=== PATIENT | female | born 1980 ===

== ENCOUNTER 2017-07-05 16:33 | Emergency (ER) | payer OTHER ==
[2017-07-05 16:58] VITALS: O2SAT 99
--- NOTE | 2017-07-05 18:04 | ED PDOC ---
HPI: Abdomen Chief Complaint (Provider): pelvic pain History Per: Patient History/Exam Limitations: no limitations Onset/Duration Of Symptoms: Hrs Outside of [place] travel?: No Current Symptoms Are (Timing): Still Present Severity: Severe Pain Scale Rating Of: 9 Location Of Pain/Discomfort: Suprapubic Quality Of Discomfort: Cramping Associated Symptoms: denies: Fever, Chills, Nausea, Vomiting, Diarrhea, Constipation, Urinary Symptoms Exacerbating Factors: None Alleviating Factors: None Additional History Per: Patient <Daniella Hill - Last Filed: 07/05/17 19:15> <Praveen Casarez III - Last Filed: 07/06/17 09:55> Time Seen by Provider: 07/05/17 17:07 Chief Complaint (Nursing): Female Genitourinary Additional Complaint(s): 37 yr old F presents to ED with complaint of pelvic pain which started today. Pain is 9/10, crampy, mildly alleviated by one dose of tylenol this morning. LMP 04/16/17. Denies vaginal bleeding today, nausea, vomiting, fevers, chills, dysuria. Patient reports she had a positive home test on 06/21/17, she was evaluated at [facility] for vaginal spotting from 06/30/17-07/04. Discharge papers reviewed: serum Beta Hcg was 7283, US showed intrauterine gestation of approximately 6 weeks and 6 days, dx Threatened and UTI, was discharged with Cephalexin 500mg PO TID x 10days, labs: ABO+. Patient has an appt at [facility] for 08/03/17. PMD: none LMP: 04/16/17 ObHx: PMHx: none SurgHx: x 2, cholecystectomy Medications: Cephalexin 500mg PO TID x 10days (on day 2) Allergies: NKDA (Daniella Hill) Supervising Attending Note <Daniella Hill - Last Filed: 07/05/17 19:15> - Attestation: I have personally seen and examined this patient.: Yes I have fully participated in the care of the patient.: Yes I have reviewed all pertinent clinical information: Yes <Praveen Casarez III - Last Filed: 07/06/17 09:55> - Notes: Notes:: 7p endorse dr sikand pending US report (Praveen Casarez III) Past Medical History - Medical History PMH: HTN - Surgical History Surgical History: Cholecystectomy, (x2) - Family History Family History: States: No Known Family Hx - Living Arrangements Living Arrangements: With Family - Social History Current smoker - smoking cessation education provided: No Ex-Smoker (has not smoked in the last 12 months): No Alcohol: None Drugs: Denies <Daniella Hill - Last Filed: 07/05/17 19:15> <Praveen Casarez III - Last Filed: 07/06/17 09:55> Vital Signs: Last Vital Signs Temp 98.3 F 07/05/17 20:45 Pulse 84 07/05/17 20:45 Resp 17 07/05/17 20:45 BP 119/76 07/05/17 20:45 Pulse Ox 99 07/06/17 06:15 - Allergies Allergies/Adverse Reactions: Allergies Allergy/AdvReac Type Severity Reaction Status Date / Time No Known Allergies Allergy Verified 07/05/17 17:43 Review of Systems Constitutional: Negative for: Fever, Chills Eyes: Negative for: Pain ENT: Negative for: Nose Discharge, Throat Pain Cardiovascular: Negative for: Chest Pain, Palpitations Gastrointestinal: Positive for: Abdominal Pain (suprapubic). Negative for: Nausea, Vomiting, Diarrhea, Constipation Genitourinary Female: Negative for: Dysuria, Frequency, Vaginal Discharge, Vaginal Bleeding Musculoskeletal: Negative for: Neck Pain, Shoulder Pain Skin: Negative for: Rash, Lesions Neurological: Negative for: Weakness, Numbness, Headache, Dizziness <Daniella Hill - Last Filed: 07/05/17 19:15> Physical Exam - Physical Exam Appears: Positive for: No Acute Distress Head Exam: Positive for: ATRAUMATIC, NORMOCEPHALIC Skin: Positive for: Normal Color, Warm, Dry Eye Exam: Positive for: EOMI, PERRL ENT: Positive for: Normal ENT Inspection Neck: Positive for: Normal Cardiovascular/Chest: Positive for: Regular Rate, Rhythm. Negative for: Gallop , Murmur Respiratory: Positive for: Normal Breath Sounds. Negative for: Rales, Rhonchi Pulses-Carotid (L): 2+ Pulses-Carotid (R): 2+ Pulses-Radial (L): 2+ Pulses-Radial (R): 2+ Gastrointestinal/Abdominal: Positive for: Bowel Sounds (normal), Soft, Tenderness (suprapubic). Negative for: Distended, Guarding, Rebound Back: Negative for: L CVA Tenderness, R CVA Tenderness Extremity: Positive for: Normal ROM. Negative for: Tenderness, Pedal Edema Lymphatic: Negative for: Adenopathy Neurologic/Psych: Positive for: Alert, embossograph operator II-XII (grossly intact), Oriented, Mood/Affect (normal/full range), Gait (normal). Negative for: Motor/Sensory Deficits <Daniella Hill - Last Filed: 07/05/17 19:15> - Laboratory Results Result Diagrams: 07/05/17 18:00 07/05/17 18:00 - ECG O2 Sat by Pulse Oximetry: 99 <Daniella Hill - Last Filed: 07/05/17 19:15> - Laboratory Results Result Diagrams: 07/05/17 18:00 07/05/17 18:00 <Praveen Casarez III - Last Filed: 07/06/17 09:55> - Progress ED Course And Treament: -serum BetaHc -CBC w/diff: WBC 11.4, rest within normal limits -BMP: normal -OB transvaginal US pending -tylenol 650mg PO once -patient stable, will transfer care to Dr. Hussein for followup of US results ( Daniella Hill) Disposition - Patient ED Disposition Is Patient to be Admitted: No Counseled Patient/Family Regarding: Diagnosis, Need For Followup - Disposition Disposition: Transfer of Care Disposition Time: 19:16 <Daniella Hill - Last Filed: 07/05/17 19:15> <Praveen Casarez III - Last Filed: 07/06/17 09:55> - Clinical Impression Clinical Impression: Threatened in first trimester - Disposition [facility]errals: [facility] [Outside] Condition: STABLE Instructions: Threatened Miscarriage Forms: [facility] (Marshallese) Print Language: TAJIK
[2017-07-05 18:19] LABS: BASO % 0.4 % (0.0-2.0); EOS # 0.2 K/uL (0.0-0.7); EOS % 1.3 % (0.0-4.0); HEMOGLOBIN 10.8 g/dL (12.0-16.0); LYMPH # 1.9 K/uL (1.0-4.3); LYMPH % 17.1 % (20.0-40.0); MEAN CORPUSCULAR HEMOGLOBIN 28.4 pg (27.0-31.0); MEAN CORPUSCULAR HGB CONC 33.5 g/dL (33.0-37.0); MEAN PLATELET VOLUME 8.6 fl (7.2-11.7); MONO # 0.7 K/uL (0.0-0.8); MONO % 6.6 % (0.0-10.0); NEUT # 8.5 K/uL (1.8-7.0); NEUT % 74.6 % (50.0-75.0); RBC 3.79 Mil/uL (3.80-5.20); RED CELL DISTRIBUTION WIDTH 13.3 % (11.5-14.5); WHITE BLOOD COUNT 11.4 K/uL (4.8-10.8)
[2017-07-05 18:25] LABS: BLOOD UREA NITROGEN 15 mg/dl (7-17); CALCIUM 8.8 mg/dL (8.4-10.2); GFR AFRICAN-AMERICAN > 60; GFR NON-AFRICAN AMERICAN > 60
--- NOTE | 2017-07-05 19:58 | ED PDOC ---
"- Laboratory Results Result Diagrams: 07/05/17 18:00 07/05/17 18:00 - ECG O2 Sat by Pulse Oximetry: 99 (RA) Pulse Ox Interpretation: Normal Medical Decision Making Medical Decision Making: Time: 19:00 Patient signed out to me by Dr. Casarez pending ultrasound and re-evaluation. Patient is stable for discharge for home. Patient was informed of results indictive AB versus threatened AB to follow-up at [facility]. Labs noted to indicate patient possibly has diabetes given elevated blood sugar. Patients PMD questioned the elevated blood glucose levels yesterday with no history of diabetes. She has been advised to follow-up at [facility] of re-diabetic state and was given dietary advice regarding concentrated sugars and sweets. Ultrasound Report Results... FINDINGS: Gestation: Single intrauterine with fetus corresponding to gestational age of 6 weeks and 3 days. The gestational sac is noted in the lower uterine segment. The cervix is closed and measures up to 3.6 cm. Fluid is noted in the lower uterine segment. [place]-rump length is 0.6 cm. No heart rate is identified. Uterus/cervix: Uterus measures 8.6 x 6.5 x 5.9 cm. Anteverted uterus. Ovaries: Right ovary measures 2.9 x 1.7 x 1.9 cm. left ovary measures 3.9 x 1.9 x 2.6 cm. 1.3 cm cystic structure noted in the left ovary. Free fluid: No free fluid. IMPRESSION: Single intrauterine with fetus corresponding to gestational age of 6 weeks and 3 days. The gestational sac is noted in the lower uterine segment. The No heart rate is identified.No intrauterine is identified. Differential diagnosis includes first trimester failure versus very early intrauterine . Advise serial beta HCG levels and follow up pelvic obstetrical ultrasound to assess for viability RESHMA MCCOLLUM | Preliminary Radiology Report ACCESS SPEC (QA) DISCREPANCY? If there is a discrepancy between the preliminary and final interpretation, please notify [facility] via [email or web address]. If you do not have access to our QA portal, call our QA team at [phone] CONFIDENTIALITY STATEMENT This report is intended only for the use of the referring physician, and only in accordance with law, If you received this in error, call [phone] Page 2 of 2 [The findings are diagnostic of failure based on the [facility] Multispecialty Consensus Conference on Early First Trimester Diagnosis of Miscarriage and Exclusion of a Viable Intrauterine - November 2011.] [The findings are suspicious for but not diagnostic of failure, based on the [facility] Multispecialty Consensus Conference on Early First Trimester Diagnosis of Miscarriage and Exclusion of a Viable Intrauterine - November 2011.] FINDINGS DIAGNOSTIC OF FAILURE: CRL of 7mm or greater and no heartbeat MSD of 25 mm or greater and no heartbeat Absence of embryo with heartbeat two or more weeks after a scan that showed a gestational sac without a yolk sac. Absence of embryo with heartbeat 11 days or more after a scan that showed a gestational sac with a yolk sac. FINDINGS SUSPICIOUS FOR, BUT NOT DIAGNOSTIC OF FAILURE: CRL of less than 7mm and no heartbeat MSD of 16-24 mm and no embryo Absence of embryo with heartbeat 7-13 days after a scan that showed a gestational sac without a yolk sac. Absence of embryo with heartbeat 7-10 days after a scan that showed a gestational sac with a yolk sac. Absence of embryo 6 or more weeks after LMP. Empty amnion (amnion seen adjacent to yolk sac, with no visible embryo). Enlarged yolk sac (7mm or greater) Small gestational sac in relation to the size of the embryo (5mm or less difference between MSD and CRL). Scribe Attestation: Documented by Ashlee Teresa acting as a scribe for Rodolfo Hussein MD. Scribfredrick Attestation: All medical record entries made by the Scribe were at my direction and personally dictated by me. I have reviewed the chart and agree that the record accurately reflects my personal performance of the history, physical exam, medical decision making, and the department course for this patient. I have also personally directed, reviewed, and agree with the discharge instructions and disposition. Disposition - Clinical Impression Clinical Impression: Threatened in first trimester - POA Present On Arrival: None - Disposition Referrals: [facility] [Outside] Disposition: Routine/Home Disposition Time: 20:00 Condition: STABLE Instructions: Threatened Miscarriage Forms: [facility] (Armenian) Print Language: SWISS"
[2017-07-06 00:12] VITALS: BP 119/76; PULSE 84; RESP 17; TEMP 98.3
--- NOTE | 2017-07-06 08:58 | US ---
PROCEDURE: OB Pelvic Ultrasound HISTORY: severe pelvic pain LMP: 04/16/2017 serum beta HCG 3664.7 Reportedly recently released from [facility] on 07/04 with diagnosis of threatened COMPARISON: None available. TECHNIQUE: Grayscale, color Doppler and spectral evaluation the pelvis performed transvaginally FINDINGS: UTERUS: Gestational sac: Lower uterine segment/cervical gestational sac measuring 1.0 cm, out of range. Yolk sac: Not visualized pole: [place]-rump length measures 0.6 cm compatible with estimated gestational age of 6 weeks, 3 days Heart rate: Not identified. Measures 8.7 x 6.6 x 5.9 cm. Normal in size and appearance. Endometrial canal contains echogenic material. CERVIX: Measures 3.7 cm. Long and closed. RIGHT OVARY: Measures 2.9 x 1.7 x 2.0 cm. No mass lesion. Normal flow. LEFT OVARY: Measures 3.1 x 2.0 x 2.7 cm. Corpus luteum measuring 1.3 x 0.7 x 1.0 cm. Normal flow. FREE FLUID: None. OTHER FINDINGS: None. IMPRESSION: Lower uterine segment/ cervical gestational sac with fetus corresponding to average ultrasound age of 6 weeks, 3 days, discordant when compared with estimated gestational age by LMP. Findings are highly suspicious for inevitable/incomplete miscarriage, and less likely represent cervical ectopic . Comparison with prior imaging is recommended. Close clinical follow-up with serial pelvic sonography and serum beta HCG levels is recommended.
== END 2017-07-05 20:51 | disposition home or self-care (01) ==
LOC: H.ER 16:33
DX: O03.9 Complete or unspecified spontaneous abortion without complication (principal); O16.1 Unspecified maternal hypertension, first trimester; Z3A.01 Less than 8 weeks gestation of pregnancy; Z90.49 Acquired absence of other specified parts of digestive tract

== ENCOUNTER 2017-07-07 11:18 | Emergency (ER) | payer OTHER ==
[2017-07-07 11:33] VITALS: O2SAT 99
[2017-07-07 11:34] VITALS: BMI 29.4
--- NOTE | 2017-07-07 12:12 | ED PDOC ---
HPI: General Adult Time Seen by Provider: 07/07/17 11:55 Chief Complaint (Nursing): Female Genitourinary Chief Complaint (Provider): vaginal bleeding History Per: Patient, Carton Packaging Machine Operator History/Exam Limitations: language barrier (maori speaking) Onset/Duration Of Symptoms: Days (2) Have you had recent travel within the past 21 days to any of the following countries: [place], [place], [place] or [place]?: No Current Symptoms Are (Timing): Better Severity: None Recently: Seen In ED (2 days ago) Additional Complaint(s): pt p/w + 2 days onset of vaginal bleeding, initially bleeding was severe, changed at least 4 pads/day; pt also noted suprapubic cramps; pt was evaluated in the ED at that time and was directed to come back to ED today?? for re-eval; pt states her bleeding is much improved today; pt only changed 1 pad today and she changed 2-3 pads yesterday but noted some passage of tissue; pt states no fever/chills/sweats, no cp/sob/palpitations, no abd pain, no n/v, no numbness/ tingling, no urinary/bowel changes, no lightheadedness/dizziness/LOC, no goode, no neck pain, no fall/trauma/sick contact, no travel; pt is here for further eval; pt's without other complaints. PCP: NONE PMHx: NONE; choley, 2 c-sections LMP: 3/5 Past Medical History Reviewed: Historical Data, Nursing Documentation, Vital Signs Vital Signs: Last Vital Signs Temp 98.4 F 07/07/17 11:33 Pulse 100 H 07/07/17 11:33 Resp 16 07/07/17 11:33 BP 151/89 H 07/07/17 11:33 Pulse Ox 99 07/07/17 12:21 - Medical History PMH: HTN - Surgical History Surgical History: Cholecystectomy, (x2) - Family History Family History: States: No Known Family Hx - Living Arrangements Living Arrangements: With Family - Social History Current smoker - smoking cessation education provided: No Ex-Smoker (has not smoked in the last 12 months): No Alcohol: None Drugs: Denies - Allergies Allergies/Adverse Reactions: Allergies Allergy/AdvReac Type Severity Reaction Status Date / Time No Known Allergies Allergy Verified 07/07/17 12:02 Review of Systems ROS Statement: Except As Marked, All Systems Reviewed And Found Negative Constitutional: Negative for: Fever, Chills, Sweats, Weakness Eyes: Negative for: Pain ENT: Negative for: Ear Pain Cardiovascular: Negative for: Chest Pain, Palpitations Respiratory: Negative for: Cough, SOB with Exertion Gastrointestinal: Positive for: Abdominal Pain. Negative for: Nausea, Vomiting Genitourinary Female: Positive for: Vaginal Bleeding. Negative for: Dysuria, Frequency, Vaginal Discharge Musculoskeletal: Negative for: Neck Pain, Back Pain Skin: Negative for: Rash Neurological: Negative for: Weakness, Headache Physical Exam - Reviewed Nursing Documentation Reviewed: Yes Vital Signs Reviewed: Yes (elevated BP) - Physical Exam Comments: General: alert/awake, GCS = 15, oriented x 3, resting in bed, mildly uncomfortable, cooperative, interactive; NAD Head: NC/AT EYE: PERRLA, EOMI, sclera anicteric, no nystagmus, no photophobia; visual field intact b/l Facial: WNL Oral: uvula/tongue are midline, no exudate/lesions, no drooling/stridor, no dysphonia; intact dentitions NECK: intact ROM, no midline tenderness, no nuchal rigidity, no meningeal signs ; no step off Chest: CTA b/l, no w/r/r; no tachypenia, no accessory muscle use noted Cardiac: +S1, +S2, no m/r/r, no tachycardia Abdominal: +BS, soft/nd/nt, well nourished patient; no masses/rebound/guarding/ rigidity; no holder's sign, no mcburney's point tenderness : deferred Extremities: intact ROM, strength 5/5 grossly intact in all limbs, neurovasc intact b/l; + ambulatory; reflex +2/2 BACK: no step off, no midline tenderness, NO crepitus, no gross deformities noted; Intact ROM SKIN: cap refill < 1 sec, no ulcerations, no petechiae, no rashes; no gross pallor NEURO: CNII-XII WNL, no facial asymmetries, no slurr speech, oriented x 3 NIH stroke scale ~ 0 Psych: normal insight, normal affect; follows command with ease - Laboratory Results Interpretation Of Abnormal: decr B-hcg - ECG O2 Sat by Pulse Oximetry: 99 Pulse Ox Interpretation: Normal - Radiology X-Ray: Viewed By Me, Read By Radiologist - Progress ED Course And Treament: HISTORY: vaginal bleeding; preg COMPARISON: None available. TECHNIQUE: Transabdominal and transvaginal pelvic ultrasound was performed. FINDINGS: UTERUS: Measures 9.4 x 7.8 x 6.6 cm. Anteverted, normal in size and appearance. No fibroid or other mass lesion seen. ENDOMETRIUM: Measures 8.0 mm in diameter. The central endometrial echo complex is normal in appearance. No evidence of intrauterine gestation. CERVIX: There is a 1.7 x 0.9 x 1.9 cm nabothian cyst. RIGHT OVARY: Measures 1.7 x 2.0 x 1.6 cm. No solid mass. Normal flow. LEFT OVARY: Measures 3.5 x 1.8 x 2.2 cm. No solid mass. Normal flow. There is a 1.8 x 1.4 x 1.6 cm isoechoic round lesion with central anechoic area and mild peripheral increased vascularity in the left adnexa. FREE FLUID: No significant free fluid noted. OTHER FINDINGS: None. IMPRESSION: 1. No evidence of intrauterine gestation. 2. 1.8 x 1.4 x 1.6 cm round lesion in the left adnexa likely represent a complicated ovarian cyst however ectopic cannot be entirely excluded. Clinical follow-up, correlation with serial beta HCG levels and follow-up imaging is recommended to confirm/exclude the same. discussed with patient at length regarding pt's U/S findings, i explained to her that the likely finding of the abnl ovarian finding could represent a cyst, but the possibility of heterogeneous hetrotopic ectopic remains and that she will need to either return to ED or go to the women's health clinic in 2-3 days for repeat HCG or if worse pelvic pain, pt is instructed to return to ED immediately. pt expressed understanding 4:30pm - pt remained comfortable, NAD; pt is made aware of her medical results pt is directed to either go to women's health clinic on sunday or return to ED for repeate HCG pt is encouraged no sex/heavy lifting, no prolonged standing/weight bearing pt is encouraged hydration pt is encouraged outpt f/u pt will be discharged home Re-evaluation Time: 16:30 Condition: Improved Medical Decision Making Medical Decision Making: Impression: vaginal bleeding/threaten ab i have consider all the differential diagnosis regarding pt's chief medical complaints/clinical findings, including but are not limited to: vaginal bleeding /threaten ab; elevated bp A/P: vaginal bleeding/threaten ab - beta-quant - u/s - ua - supportive care - observe/reevaluation Disposition - Clinical Impression Clinical Impression: Ovarian cyst, Complete miscarriage, Vaginal bleeding, Elevated blood pressure reading - Patient ED Disposition Is Patient to be Admitted: No Counseled Patient/Family Regarding: Studies Performed, Diagnosis, Need For Followup, Rx Given - Disposition Referrals: PCP,NO [Non-Staff] - [facility] [place] [Outside] [facility] [Outside] [facility] [Outside] [facility] [Outside] Disposition: Routine/Home Disposition Time: 16:26 Condition: STABLE Additional Instructions: Make sure to see your doctor in 1-2 days YOU need to go to the women's clinic on Sunday and have blood tests (b-HCG) drawn for re-check or come to the ED and tell them you need to have the blood tests drawn DRINK PLENTY OF FLUIDS NO heavy lifting NO SEX bed rest is encouraged take your medications as prescribed RETURN TO ED IF worse pain, cant breath, persistent vomiting, high fever >101- 102 for hours, altered behavior, slurr speech, facial changes, focal weakness ( arm/leg or both), unable to urinate, heavy/persistent bleeding, passing out, chest pain, or other medical emergencies Instructions: Ovarian Cysts, Miscarriage, High Blood Pressure (DC) Forms: [facility] (Rwandan) Print Language: KYRGYZ
[2017-07-07 13:05] LABS: SQUAMOUS EPITHIAL 4 /hpf (0-5); URINE BACTERIA MANY (<OCC); URINE BILIRUBIN NEGATIVE (NEGATIVE); URINE BLOOD LARGE (NEGATIVE); URINE CLARITY CLOUDY (Clear); URINE COLOR YELLOW (YELLOW); URINE GLUCOSE (UA) >=500 mg/dL (Normal); URINE LEUKOCYTE ESTERASE MOD Leu/uL (Negative); URINE PROTEIN >=500 mg/dL (NEGATIVE); URINE UROBILINOGEN 0.2-1.0 mg/dL (0.2-1.0); WBC CLUMPS RARE /hpf
--- NOTE | 2017-07-07 15:28 | US ---
HISTORY: vaginal bleeding; preg COMPARISON: None available. TECHNIQUE: Transabdominal and transvaginal pelvic ultrasound was performed. FINDINGS: UTERUS: Measures 9.4 x 7.8 x 6.6 cm. Anteverted, normal in size and appearance. No fibroid or other mass lesion seen. ENDOMETRIUM: Measures 8.0 mm in diameter. The central endometrial echo complex is normal in appearance. No evidence of intrauterine gestation. CERVIX: There is a 1.7 x 0.9 x 1.9 cm nabothian cyst. RIGHT OVARY: Measures 1.7 x 2.0 x 1.6 cm. No solid mass. Normal flow. LEFT OVARY: Measures 3.5 x 1.8 x 2.2 cm. No solid mass. Normal flow. There is a 1.8 x 1.4 x 1.6 cm isoechoic round lesion with central anechoic area and mild peripheral increased vascularity in the left adnexa. FREE FLUID: No significant free fluid noted. OTHER FINDINGS: None. IMPRESSION: 1. No evidence of intrauterine gestation. 2. 1.8 x 1.4 x 1.6 cm round lesion in the left adnexa likely represent a complicated ovarian cyst however ectopic cannot be entirely excluded. Clinical follow-up, correlation with serial beta HCG levels and follow-up imaging is recommended to confirm/exclude the same.
[2017-07-07 16:31] VITALS: BP 146/82; PULSE 86; RESP 15; TEMP 98
== END 2017-07-07 16:38 | disposition home or self-care (01) ==
LOC: H.ER 11:18
DX: O03.9 Complete or unspecified spontaneous abortion without complication (principal); N83.209 Unspecified ovarian cyst, unspecified side; I10 Essential (primary) hypertension; Z87.891 Personal history of nicotine dependence

== ENCOUNTER 2017-09-18 13:27 | Emergency (ER) | payer SELFPAY ==
[2017-09-18 13:52] VITALS: BMI 28.1
[2017-09-18 13:53] VITALS: O2SAT 99
[2017-09-18] MEDS ORDERED: Sodium Chloride 0.9% 1,000 ML IV STA (14:39)
[2017-09-18] MEDS ORDERED: Iohexol 240 (50 ml) PO ONE (14:40)
--- NOTE | 2017-09-18 14:48 | ED PDOC ---
HPI: Abdomen Time Seen by Provider: 09/18/17 14:20 Chief Complaint (Nursing): GI Problem Chief Complaint (Provider): Abdominal Pain History Per: Patient History/Exam Limitations: no limitations Location Of Pain/Discomfort: Diffuse Quality Of Discomfort: "Pain" Associated Symptoms: Nausea, Vomiting. denies: Fever, Diarrhea, Urinary Symptoms Additional Complaint(s): 37 year old female with a past medical history of diabetes presents to the ED for an evaluation of nausea, vomiting and abdominal pain onset for 1 week. Reports of greenish non-bloody vomiting. Denies fever, shortness of breath, chest pain, cough, diarrhea, constipation, urinary symptoms or incontinence. PMD: No Family Provider Past Medical History Reviewed: Historical Data, Nursing Documentation, Vital Signs Vital Signs: Last Vital Signs Temp 98.7 F 09/18/17 13:52 Pulse 91 H 09/18/17 13:52 Resp 20 09/18/17 13:52 BP 131/80 09/18/17 13:52 Pulse Ox 99 09/18/17 14:58 - Medical History PMH: Diabetes, HTN - Surgical History Surgical History: Cholecystectomy, (x2) - Family History Family History: States: Unknown Family Hx - Social History Current smoker - smoking cessation education provided: No Alcohol: None Drugs: Denies - Allergies Allergies/Adverse Reactions: Allergies Allergy/AdvReac Type Severity Reaction Status Date / Time No Known Allergies Allergy Verified 07/07/17 12:02 Review of Systems ROS Statement: Except As Marked, All Systems Reviewed And Found Negative Constitutional: Negative for: Fever Cardiovascular: Negative for: Chest Pain Respiratory: Negative for: Shortness of Breath Gastrointestinal: Positive for: Nausea, Vomiting, Abdominal Pain. Negative for : Diarrhea Genitourinary Female: Negative for: Dysuria, Frequency, Incontinence Psych: Negative for: Suicidal ideation (homicidal ideation ) Physical Exam - Reviewed Nursing Documentation Reviewed: Yes Vital Signs Reviewed: Yes - Physical Exam Appears: Positive for: Non-toxic, No Acute Distress Head Exam: Positive for: ATRAUMATIC, NORMAL INSPECTION, NORMOCEPHALIC Skin: Positive for: Normal Color, Warm, Dry Eye Exam: Positive for: EOMI, Normal appearance, PERRL ENT: Positive for: Normal ENT Inspection Neck: Positive for: Normal, Painless ROM, Supple. Negative for: Decreased ROM Cardiovascular/Chest: Positive for: Regular Rate, Rhythm. Negative for: Murmur Respiratory: Positive for: Normal Breath Sounds. Negative for: Decreased Breath Sounds, Wheezing, Respiratory Distress Gastrointestinal/Abdominal: Positive for: Tenderness (mild; diffuse) Back: Positive for: Normal Inspection. Negative for: L CVA Tenderness, R CVA Tenderness Extremity: Positive for: Normal ROM. Negative for: Tenderness, Pedal Edema, Deformity Neurologic/Psych: Positive for: Alert, Oriented (x3), Gait (steady). Negative for: Motor/Sensory Deficits - Laboratory Results Result Diagrams: 09/18/17 15:15 09/18/17 15:15 Interpretation Of Abn Labs: 10.9 wbc, 8 hg - ECG O2 Sat by Pulse Oximetry: 99 (RA) Pulse Ox Interpretation: Normal - Progress ED Course And Treament: 1626: Stable. Dr. Montes to take over care. Thomas on ct. Medical Decision Making Medical Decision Making: Time: 1438 Initial Impression: abdominal pain Initial Plan: --Abdominal Pelvis PO & IV Contrast [CT] --CMP --Lipase --ED Urine --Urine Dip --CBC w/ Differential --Sodium Chloride 0.9% 100 ml IV 100mls/hr --Omnipaque 240 (50ml) --Pepcid 50ml --Toradol 15mg --Zofran 4mg --Reevaluation Scribe Attestation: Documented by Puneet Last, acting as a scribe for Ralf Short MD Provider Scribe Attestation: All medical record entries made by the Scribe were at my direction and personally dictated by me. I have reviewed the chart and agree that the record accurately reflects my personal performance of the history, physical exam, medical decision making, and the department course for this patient. I have also personally directed, reviewed, and agree with the discharge instructions and disposition. Disposition - Clinical Impression Clinical Impression: Abdominal pain - Patient ED Disposition Is Patient to be Admitted: Transfer of Care - Disposition Disposition: Transfer of Care Disposition Time: 16:27 Condition: FAIR
[2017-09-18 15:27] LABS: BASO # 0.1 K/uL (0.0-0.2); BASO % 0.6 % (0.0-2.0); EOS # 0.1 K/uL (0.0-0.7); EOS % 0.5 % (0.0-4.0); LYMPH # 1.5 K/uL (1.0-4.3); LYMPH % 13.3 % (20.0-40.0); MEAN CELL VOLUME 80.9 fl (81.0-99.0); MEAN CORPUSCULAR HEMOGLOBIN 26.7 pg (27.0-31.0); MEAN PLATELET VOLUME 8.4 fl (7.2-11.7); MONO # 0.4 K/uL (0.0-0.8); NEUT # 8.9 K/uL (1.8-7.0); NEUT % 81.6 % (50.0-75.0); RED CELL DISTRIBUTION WIDTH 13.2 % (11.5-14.5); WHITE BLOOD COUNT 10.9 K/uL (4.8-10.8)
[2017-09-18] MEDS ORDERED: Iohexol 240 (50 ml) ONE (15:33)
[2017-09-18 15:48] LABS: ALB/GLOB RATIO 0.9 (1.0-2.1); ALBUMIN 3.5 g/dL (3.5-5.0); ALT/SGPT 32 U/L (9-52); AST/SGOT 28 U/L (14-36); BLOOD UREA NITROGEN 21 mg/dl (7-17); CALCIUM 9.4 mg/dL (8.4-10.2); GFR AFRICAN-AMERICAN > 60; GFR NON-AFRICAN AMERICAN > 60; LIPASE 63 U/L (23-300)
[2017-09-18] MEDS ORDERED: Iohexol 300 100 ML IJ ONE (15:53)
[2017-09-18] MEDS ORDERED: Sodium Chloride 0.9% 50 ML IV ONE (15:53)
--- NOTE | 2017-09-18 20:29 | ED PDOC ---
- Laboratory Results Result Diagrams: 09/18/17 15:15 09/18/17 15:15 - ECG O2 Sat by Pulse Oximetry: 99 (RA) - Progress ED Course And Treament: 5p Rec'd endorsment from Dr Short. Pending CT and final ER disposition EXAM: CT Abdomen and Pelvis With Intravenous Contrast EXAM DATE/TIME: Examination ordered 09/18/2017 2:39 PM. Image number total count reviewed [id number] CLINICAL HISTORY: The patient is 37 years old and is female; Pain and signs and symptoms; Nausea and vomiting; Abdominal pain; Epigastric; Prior surgery; Surgery date: 6+ months; Surgery type : 2 c-sectons. Gb removed; Additional info: Abd pain Facility exam id and description: [id number] abd pelvis po iv contrast TECHNIQUE: Axial computed tomography images of the abdomen and pelvis with intravenous contrast. All CT scans at this facility use at least one of these dose optimization techniques: automated exposure control; mA and/or kV adjustment per patient size (includes targeted exams where dose is matched to clinical indication); or iterative reconstruction. Coronal and sagittal reformatted images were created and reviewed. CONTRAST: 90 mL of [id number] administered intravenously. COMPARISON: No relevant prior studies available. FINDINGS: LUNG BASES: Bibasilar atelectasis/scarring at the lung bases. ABDOMEN: LIVER: 1.6 cm subtle left hepatic hypredense/enhancing lesion. Follow up. GALLBLADDER AND BILE DUCTS: Unremarkable. No calcified stones. No ductal dilation. PANCREAS: Unremarkable. No mass. No ductal dilation. SPLEEN: Unremarkable. No splenomegaly. ADRENALS: Unremarkable. No mass. KIDNEYS AND URETERS: Mild left upper pole inflammatory stranding with subtle area of hypoattenuation may be from developing pyelonephritis. No hydronephrosis. STOMACH AND BOWEL: Gastric mucosa is thickened with mild stranding along the antrum of the stomach which may be from gastritis. Correlate clinically. MIld stool through the colon. Portions of bowel appear thickened as well. PELVIS: APPENDIX: No findings to suggest acute appendicitis. BLADDER: Unremarkable. REPRODUCTIVE: Unremarkable as visualized. ABDOMEN and PELVIS: INTRAPERITONEAL SPACE: No free air. No significant fluid collection. BONES/JOINTS: No acute fracture. SOFT TISSUES: Unremarkable. VASCULATURE: Unremarkable. No abdominal aortic aneurysm. LYMPH NODES: No enlarged lymph nodes. IMPRESSION: 1. Bibasilar atelectasis/scarring at the lung bases. 2. 1.6 cm subtle left hepatic hypredense/enhancing lesion. Follow up. 3. Mild left upper pole inflammatory stranding with subtle area of hypoattenuation may be from developing pyelonephritis. 4. Gastric mucosa is thickened with mild stranding along the antrum of the stomach which may be from gastritis. Correlate clinically. 5. MIld stool through the colon. Portions of bowel appear thickened as well. Thank you for allowing us to participate in the care of your patient. Dictated and Authenticated by: Марина Hemphill MD 09/18/2017 8:22 PM Eastern Time ([place] & [place]) Disposition Counseled Patient/Family Regarding: Studies Performed, Diagnosis, Need For Followup, Rx Given - Clinical Impression Clinical Impression: Abdominal pain, UTI (urinary tract infection) - POA Present On Arrival: None - Disposition Referrals: [facility] [Outside] - 09/20/17 Disposition: Routine/Home Disposition Time: 20:39 Condition: IMPROVED Prescriptions: Ciprofloxacin HCl [Cipro] 250 mg PO BID #14 tab Dicyclomine [Bentyl] 20 mg PO QID PRN #20 tab PRN Reason: abdominal pain Famotidine [Pepcid] 40 mg PO DAILY PRN #30 tab PRN Reason: reflux Instructions: Urinary Tract Infection, Adult (DC), Acute Abdomen (Belly Pain) Forms: [facility] ED School/Work Excuse Print Language: GUINEAN
[2017-09-18 20:57] VITALS: BP 141/82; PULSE 79; RESP 16; TEMP 98.2
--- NOTE | 2017-09-19 12:37 | CT ---
Date of service: 09/18/2017 PROCEDURE: CT Abdomen and Pelvis with Oral contrast. HISTORY: Abdominal pain COMPARISON: None. TECHNIQUE: Contiguous axial images of the abdomen and pelvis performed following oral and intravenous injection of approximately 90 cc of Omnipaque 300 contrast material. Coronal and Sagittal reformats generated. This CT exam was performed using one or more of the following dose reduction techniques: Automated exposure control, adjustment of the mA and/or kV according to patient size, and/or use of iterative reconstruction technique. Radiation dose: Total exam DLP = 700.01 mGy-cm. FINDINGS: LOWER THORAX: Mild atelectasis/ scarring changes both lung bases including the middle lobe and to a lesser degree lingular regions. No effusion or basilar pneumothorax. Heart size is within range of normal. No significant pericardial effusion. There is a small hiatal hernia with minimal wall thickening of the distal esophagus likely due to protrusion of gastric mucosa. LIVER: Liver is enlarged measuring approximately 22.5 cm in CC dimension. There is mild fatty hepatic infiltration. Small approximately 1.9 x 1.2 cm elliptical shaped enhancing focus left lobe liver could represent hemangioma. Followup interval recommended to assess stability. Alternately, triple phase CT scan liver could be obtained. Portal and splenic veins are opacified. GALLBLADDER AND BILE DUCTS: Gallbladder is appears to be incompletely distended likely due to nonfasting state. Correlation with gallbladder ultrasound could be performed if indicated. No obvious intraluminal calculi seen in the expected location of the gallbladder lumen. Common bile duct is prominent. PANCREAS: Pancreas appears grossly unremarkable. No obvious pancreatic masses or collections. SPLEEN: Spleen exhibits normal size and attenuation. There is a small approximately 5.6 mm elliptical shaped low-attenuation focus within the splenic parenchyma of uncertain etiology. Followup on CT scan at interval could be performed to assess stability. . ADRENALS: Unremarkable. KIDNEYS AND URETERS: There is a an ill-defined area of low attenuation occupying a good portion of the upper pole left kidney at that is suspicious for pyelonephritis. Additionally, there also appears to be some very minimal infiltration changes seen in perinephric fat the superior but adjacent to to the upper pole left kidney. Clinical correlation with urinalysis recommended. No other focal areas of abnormal attenuation. No evidence of nephrolithiasis or hydronephrosis. BLADDER: Urinary bladder is physiologically distended. Minimal bladder wall thickening ; rule out cystitis and again correlation with urinalysis recommended. No evidence of intraluminal urinary bladder calculi. REPRODUCTIVE: Suspect follicular cyst left adnexa measuring approximately 8 mm . Correlation with pelvic ultrasound could be performed for confirmation and further evaluation if necessary. APPENDIX: Normal-appearing appendix best seen on axial image number [id number]. No periappendiceal inflammatory changes. BOWEL: Evaluation of the bowel is somewhat limited due to incomplete opacification. The stomach is incompletely distended which presumably in part accounts for thick-walled appearance. Possibility of a gastritis or other intrinsic/invasive wall lesion not excluded. Correlation with endoscopy may be prudent if indicated. Visualized loops of small bowel exhibit normal contour and caliber. No evidence acute mechanical small bowel obstruction with oral contrast material seen extending into the colon to the level of the splenic flexure region. No evidence of mural wall thickening of the colon so far as can be seen. PERITONEUM: Unremarkable. No fluid collection. No free air. Small fat containing umbilical hernia. LYMPH NODES: Multiple small on nonspecific retroperitoneal lymph nodes are present. VASCULATURE: Unremarkable. No aortic aneurysm. BONES: No fracture or destructive lesion. OTHER FINDINGS: None. IMPRESSION: Findings consistent with pyelonephritis upper pole left kidney minimal bladder wall thickening; rule out cystitis. Several small nonspecific retroperitoneal lymph nodes. Hepatomegaly. Mild fatty hepatic infiltration. Small elliptical shaped enhancing lesion left lobe liver could represent hemangioma. Follow-up CT scan at interval could be performed to assess stability. Alternately, triple phase CT scan liver could be obtained. Small low-attenuation lesion within the splenic parenchyma of uncertain etiology. Followup interval could be performed to assess stability. Suspect small follicular cyst left adnexal
== END 2017-09-18 21:18 | disposition home or self-care (01) ==
LOC: H.ER 13:27
DX: N39.0 Urinary tract infection, site not specified (principal); R10.9 Unspecified abdominal pain; E11.9 Type 2 diabetes mellitus without complications; I10 Essential (primary) hypertension
CPT/HCPCS: 74177; 80053; 81025; 83690; 85025; 96374; 96375; 99285; J1885; J2405; J7030; Q9966; Q9967

== ENCOUNTER 2017-09-27 14:29 | Emergency (ER) | payer SELFPAY ==
[2017-09-27 14:29] VITALS: BMI 28.1
[2017-09-27 14:42] VITALS: BP 105/64; PULSE 98; RESP 16; TEMP 97.8; O2SAT 100
[2017-09-27] MEDS ORDERED: Sodium Chloride 0.9% 1,000 ML IV STA (15:39)
--- NOTE | 2017-09-27 16:02 | ED PDOC ---
HPI: Abdomen Time Seen by Provider: 09/27/17 15:33 Chief Complaint (Nursing): Abdominal Pain Chief Complaint (Provider): Abdominal Pain History Per: Patient History/Exam Limitations: no limitations Onset/Duration Of Symptoms: Days (x13) Current Symptoms Are (Timing): Still Present Quality Of Discomfort: "Pain" Associated Symptoms: Nausea, Vomiting. denies: Diarrhea, Constipation Additional Complaint(s): 37 y/o female with a PMHx of DM presents to the ED for evaluation of intermittent abdominal pain that radiates to the mid-back and is associated with nausea and vomiting, onset 13 days ago. Patient was seen here on the for the same pain and was diagnosed with a UTI and sent home with Cipro. Patient states she is compliant with prescribed medications. Denies fever, constipation, diarrhea and other complaints at this time. PMD: Yadira Felipe Past Medical History Reviewed: Historical Data, Nursing Documentation, Vital Signs Vital Signs: Last Vital Signs Temp 97.8 F 09/27/17 14:39 Pulse 98 H 09/27/17 14:39 Resp 16 09/27/17 14:39 BP 105/64 09/27/17 14:39 Pulse Ox 100 09/27/17 18:45 - Medical History PMH: Diabetes, HTN - Surgical History Surgical History: Cholecystectomy, (x2) - Family History Family History: States: Unknown Family Hx - Social History Current smoker - smoking cessation education provided: No Alcohol: None Drugs: Denies - Home Medications Home Medications: Ambulatory Orders Medication Instructions Recorded Ciprofloxacin HCl [Cipro] 250 mg PO BID #14 tab 09/18/17 Dicyclomine [Bentyl] 20 mg PO QID PRN #20 tab 09/18/17 Famotidine [Pepcid] 40 mg PO DAILY PRN #30 tab 09/18/17 Nitrofurantoin Macrocrystals 100 mg PO BID #13 cap 09/27/17 [Macrobid] Phenazopyridine [Pyridium] 200 mg PO TID PRN #6 tab 09/27/17 - Allergies Allergies/Adverse Reactions: Allergies Allergy/AdvReac Type Severity Reaction Status Date / Time No Known Allergies Allergy Verified 07/07/17 12:02 Review of Systems ROS Statement: Except As Marked, All Systems Reviewed And Found Negative Constitutional: Negative for: Fever Gastrointestinal: Positive for: Nausea, Vomiting, Abdominal Pain. Negative for : Diarrhea, Constipation Musculoskeletal: Positive for: Back Pain (MID-BACK ) Physical Exam - Reviewed Nursing Documentation Reviewed: Yes Vital Signs Reviewed: Yes - Physical Exam Appears: Positive for: Non-toxic, No Acute Distress Head Exam: Positive for: ATRAUMATIC, NORMOCEPHALIC Skin: Positive for: Normal Color, Warm, Dry Eye Exam: Positive for: Normal appearance, EOMI, PERRL Neck: Positive for: Normal, Painless ROM Cardiovascular/Chest: Positive for: Regular Rate, Rhythm. Negative for: Murmur Respiratory: Positive for: Normal Breath Sounds. Negative for: Respiratory Distress Gastrointestinal/Abdominal: Positive for: Normal Exam, Soft, Tenderness ( epigastric tenderness). Negative for: Guarding, Rebound Back: Positive for: Normal Inspection. Negative for: L CVA Tenderness, R CVA Tenderness, Vertebral Tenderness Extremity: Positive for: Normal ROM. Negative for: Pedal Edema, Deformity Neurologic/Psych: Positive for: Alert, Oriented. Negative for: Motor/Sensory Deficits - Laboratory Results Result Diagrams: 09/27/17 16:35 09/27/17 16:35 - ECG O2 Sat by Pulse Oximetry: 100 (RA) Pulse Ox Interpretation: Normal Medical Decision Making Medical Decision Making: Time: 1635 Plan: -- CT Abd/Pelvis IV Contrast -- EKG -- CMP -- Lipase -- ED Urine -- ED Urine Dipstick -- CBC with differentials -- PTT -- Prothrombin Time -- Sodium Chloride IV 1000 mls/hr -- Pepcid 20 mg IVP -- Zofran Inj 4 mg IVP -- Urinalysis 1844 CT Abdomen/Pelvis FINDINGS: LOWER THORAX: Unremarkable. LIVER: Unremarkable. No gross lesion or ductal dilatation. Previously identified mass left hepatic lobe is not visualized on the current study in this is likely due to technique and the phase of contrast enhancement on the current study compared to the previous examination. GALLBLADDER AND BILE DUCTS: Unremarkable. PANCREAS: Unremarkable. No gross lesion or ductal dilatation. SPLEEN: Unremarkable. ADRENALS: Unremarkable. No mass. KIDNEYS AND URETERS: Stable contrast-enhancing characteristics upper pole left kidney likely reflective of pyelonephritis. VASCULATURE: Unremarkable. No aortic aneurysm. BOWEL: Unremarkable. No obstruction. No gross mural thickening. APPENDIX: No abnormalities to suggest acute appendicitis. No right lower quadrant inflammatory processes identified. PERITONEUM: Unremarkable. No free fluid. No free air. LYMPH NODES: Unremarkable. No enlarged lymph nodes. BLADDER: Unremarkable. REPRODUCTIVE: Unremarkable. BONES: No acute fracture. OTHER FINDINGS: None. IMPRESSION: Suspicious findings upper pole left kidney for pyelonephritis. Similar findings identified on the prior study. Otherwise no significant/ acute findings or interval changes. Scribe Attestation: Documented by Carleen Da Silva acting as a scribe for Lian Souza MD. Provider Scribe Attestation: All medical record entries made by the Scribe were at my direction and personally dictated by me. I have reviewed the chart and agree that the record accurately reflects my personal performance of the history, physical exam, medical decision making, and the department course for this patient. I have also personally directed, reviewed, and agree with the discharge instructions and disposition. Disposition - Clinical Impression Clinical Impression: UTI (urinary tract infection) - Disposition Referrals: [facility] [Outside] Disposition: Routine/Home Disposition Time: 18:45 Condition: STABLE Additional Instructions: DISCONTINUAR CIPROFLOXACIN. Prescriptions: Nitrofurantoin Macrocrystals [Macrobid] 100 mg PO BID #13 cap Phenazopyridine [Pyridium] 200 mg PO TID PRN #6 tab PRN Reason: Bladder Spasm Instructions: Urinary Tract Infections in Adults Forms: [employer] (Greek) Print Language: SETSWANA
[2017-09-27 16:50] LABS: BASO # 0.1 K/uL (0.0-0.2); BASO % 0.9 % (0.0-2.0); EOS % 0.2 % (0.0-4.0); HEMOGLOBIN 9.6 g/dL (12.0-16.0); LYMPH # 1.2 K/uL (1.0-4.3); LYMPH % 15.1 % (20.0-40.0); MEAN CELL VOLUME 81.8 fl (81.0-99.0); MEAN CORPUSCULAR HEMOGLOBIN 27.1 pg (27.0-31.0); MEAN CORPUSCULAR HGB CONC 33.1 g/dL (33.0-37.0); MEAN PLATELET VOLUME 9.3 fl (7.2-11.7); MONO # 0.3 K/uL (0.0-0.8); MONO % 3.9 % (0.0-10.0); NEUT # 6.6 K/uL (1.8-7.0); NEUT % 79.9 % (50.0-75.0); RBC 3.55 Mil/uL (3.80-5.20); RED CELL DISTRIBUTION WIDTH 15.1 % (11.5-14.5); WHITE BLOOD COUNT 8.3 K/uL (4.8-10.8)
[2017-09-27 16:53] LABS: PROTHROMBIN TIME 11.5 Seconds (9.8-13.1)
[2017-09-27 17:08] LABS: ALBUMIN 3.8 g/dL (3.5-5.0); ALT/SGPT 12 U/L (9-52); AST/SGOT 43 U/L (14-36); BLOOD UREA NITROGEN 26 mg/dl (7-17); CALCIUM 9.3 mg/dL (8.4-10.2); GFR AFRICAN-AMERICAN > 60; GFR NON-AFRICAN AMERICAN 51; LIPASE 58 U/L (23-300)
[2017-09-27] MEDS ORDERED: Sodium Chloride 0.9% 100 ML ONE (18:02)
[2017-09-27] MEDS ORDERED: Iohexol 300 100 ML IJ ONE (18:02)
[2017-09-27 18:19] LABS: SQUAMOUS EPITHIAL 2 /hpf (0-5); URINE BACTERIA OCC (<OCC); URINE BILIRUBIN NEGATIVE (NEGATIVE); URINE CLARITY CLOUDY (Clear); URINE COLOR YELLOW (YELLOW); URINE GLUCOSE (UA) >=500 mg/dL (Normal); URINE LEUKOCYTE ESTERASE MOD Leu/uL (Negative); URINE PROTEIN >=500 mg/dL (NEGATIVE); URINE UROBILINOGEN 0.2-1.0 mg/dL (0.2-1.0)
[2017-09-27 18:27] LABS: URINE BLOOD MODERATE (NEGATIVE)
--- NOTE | 2017-09-27 18:41 | CT ---
Date of service: 09/27/2017 PROCEDURE: CT Abdomen and Pelvis with contrast HISTORY: Epigastric/back pain COMPARISON: 09/18/2017 CT abdomen and pelvis. 07/07/2017 pelvic ultrasound TECHNIQUE: Contrast dose: 95 cc Omnipaque 300 Radiation dose: Total exam DLP = mGy-cm. This CT exam was performed using one or more of the following dose reduction techniques: Automated exposure control, adjustment of the mA and/or kV according to patient size, and/or use of iterative reconstruction technique. FINDINGS: LOWER THORAX: Unremarkable. LIVER: Unremarkable. No gross lesion or ductal dilatation. Previously identified mass left hepatic lobe is not visualized on the current study in this is likely due to technique and the phase of contrast enhancement on the current study compared to the previous examination. GALLBLADDER AND BILE DUCTS: Unremarkable. PANCREAS: Unremarkable. No gross lesion or ductal dilatation. SPLEEN: Unremarkable. ADRENALS: Unremarkable. No mass. KIDNEYS AND URETERS: Stable contrast-enhancing characteristics upper pole left kidney likely reflective of pyelonephritis. VASCULATURE: Unremarkable. No aortic aneurysm. BOWEL: Unremarkable. No obstruction. No gross mural thickening. APPENDIX: No abnormalities to suggest acute appendicitis. No right lower quadrant inflammatory processes identified. PERITONEUM: Unremarkable. No free fluid. No free air. LYMPH NODES: Unremarkable. No enlarged lymph nodes. BLADDER: Unremarkable. REPRODUCTIVE: Unremarkable. BONES: No acute fracture. OTHER FINDINGS: None. IMPRESSION: Suspicious findings upper pole left kidney for pyelonephritis. Similar findings identified on the prior study. Otherwise no significant/ acute findings or interval changes.
--- NOTE | 2017-09-28 08:33 | CARD ---
APPROVED REPORT Date of service: 09/27/2017 <Conclusion> Normal sinus rhythm Normal ECG
== END 2017-09-27 19:05 | disposition home or self-care (01) ==
LOC: H.ER 14:29
DX: N39.0 Urinary tract infection, site not specified (principal); E11.9 Type 2 diabetes mellitus without complications; I10 Essential (primary) hypertension
CPT/HCPCS: 74177; 80053; 81003; 81025; 83690; 85025; 85610; 85730; 87086; 93005; 96361; 96374; 96375; 99283; J2405; J7030; Q9967

== ENCOUNTER 2018-01-01 11:43 | Emergency (ER) | payer SELFPAY ==
[2018-01-01 11:51] VITALS: BMI 28.3
[2018-01-01] MEDS ORDERED: Sodium Chloride 0.9% 1,000 ML IV STA (12:19)
--- NOTE | 2018-01-01 12:22 | ED PDOC ---
HPI: Abdomen Time Seen by Provider: 01/01/18 11:57 Chief Complaint (Nursing): Abdominal Pain Chief Complaint (Provider): pelvic pain, nausea and vomiting History Per: Patient History/Exam Limitations: no limitations Onset/Duration Of Symptoms: Days (x2) Associated Symptoms: Nausea, Vomiting. denies: Diarrhea, Back Pain, Chest Pain, Urinary Symptoms Additional Complaint(s): Angelica Seaman is a 37 year old female, with a past medical history of diabetes, who presents to the emergency department complaining of pelvic cramping associated with nausea and vomiting onset for x2 days. Patient is x2 months . She denies any vaginal bleeding, back pain, urinary symptoms, diarrhea, fever, chills, cough, congestion, chest pain, shortness of breath, headache, dizziness, weakness, numbness or tingling. No further medical complaints. PMD: Daniella Hill Past Medical History Reviewed: Historical Data, Nursing Documentation, Vital Signs Vital Signs: Last Vital Signs Temp 97.0 F L 01/01/18 12:04 Pulse 96 H 01/01/18 12:04 Resp 18 01/01/18 12:04 BP 156/82 H 01/01/18 12:04 Pulse Ox 100 01/01/18 12:04 - Medical History PMH: Diabetes, HTN Denies: Chronic Kidney Disease - Surgical History Surgical History: Cholecystectomy, (x2) - Family History Family History: States: Unknown Family Hx - Social History Current smoker - smoking cessation education provided: No Alcohol: None Drugs: Denies - Immunization History Hx Tetanus Toxoid Vaccination: No Hx Influenza Vaccination: Yes Hx Pneumococcal Vaccination: No - Home Medications Home Medications: Ambulatory Orders Medication Instructions Recorded Ciprofloxacin HCl [Cipro] 250 mg PO BID #14 tab 09/18/17 Dicyclomine [Bentyl] 20 mg PO QID PRN #20 tab 09/18/17 Famotidine [Pepcid] 40 mg PO DAILY PRN #30 tab 09/18/17 Nitrofurantoin Macrocrystals 100 mg PO BID #13 cap 09/27/17 [Macrobid] Phenazopyridine [Pyridium] 200 mg PO TID PRN #6 tab 09/27/17 - Allergies Allergies/Adverse Reactions: Allergies Allergy/AdvReac Type Severity Reaction Status Date / Time No Known Allergies Allergy Verified 07/07/17 12:02 Review of Systems ROS Statement: Except As Marked, All Systems Reviewed And Found Negative Constitutional: Negative for: Fever, Chills ENT: Negative for: Nose Congestion Cardiovascular: Negative for: Chest Pain Respiratory: Negative for: Cough, Shortness of Breath Gastrointestinal: Positive for: Nausea, Vomiting. Negative for: Diarrhea Genitourinary Female: Positive for: Pelvic Pain (cramps). Negative for: Dysuria, Frequency, Vaginal Bleeding Musculoskeletal: Negative for: Back Pain Neurological: Negative for: Weakness, Numbness (tingling), Headache, Dizziness Physical Exam - Reviewed Nursing Documentation Reviewed: Yes Vital Signs Reviewed: Yes - Physical Exam Appears: Positive for: No Acute Distress Head Exam: Positive for: ATRAUMATIC, NORMAL INSPECTION, NORMOCEPHALIC Skin: Positive for: Normal Color, Warm, Dry Eye Exam: Positive for: Normal appearance, EOMI, PERRL Neck: Positive for: Normal, Painless ROM Cardiovascular/Chest: Positive for: Regular Rate, Rhythm. Negative for: Murmur Respiratory: Positive for: Normal Breath Sounds. Negative for: Respiratory Distress Gastrointestinal/Abdominal: Positive for: Tenderness (mild tenderness across lower pelvis ). Negative for: Guarding, Rebound Back: Positive for: Normal Inspection. Negative for: L CVA Tenderness, R CVA Tenderness, Vertebral Tenderness Extremity: Positive for: Normal ROM (upper and lower extremities). Negative for: Deformity, Swelling Neurologic/Psych: Positive for: Alert, Oriented - Laboratory Results Result Diagrams: 01/01/18 12:45 01/01/18 13:20 - ECG O2 Sat by Pulse Oximetry: 100 (RA) Pulse Ox Interpretation: Normal - CT Scan/US US Other Rad Studies (CT/US): Read By Radiologist Other Rad Interpretation: SLIUP - Progress ED Course And Treament: 1437: Pt. with no bleeding. No pain currently. Fu with pcp. Medical Decision Making Medical Decision Making: Time: 11:57 Initial Impression: Pelvic cramps Initial Plan: --ABO/RH Type --Type and screen --Beta-HCG, Quantitative --CMP --Urine --Urine dipstick --CBC w/ differential --Sodium Chloride 1,000 ml IV 1,000 mls/hr --Reglan 10 mg IV --OB Transvaginal [US] --Reevaluation -------- Scribe Attestation: Documented by Adalberto Hyman, acting as a scribe for Ralf Short MD. Provider Scribe Attestation: All medical record entries made by the Scribe were at my direction and p ersonally dictated by me. I have reviewed the chart and agree that the record accurately reflects my personal performance of the history, physical exam, medical decision making, and the department course for this patient. I have also personally directed, reviewed, and agree with the discharge instructions and disposition. Disposition - Clinical Impression Clinical Impression: Threatened - Patient ED Disposition Is Patient to be Admitted: No Counseled Patient/Family Regarding: Studies Performed, Diagnosis, Need For Followup - Disposition [facility] - [facility]18 Disposition: Routine/Home Disposition Time: 14:38 Condition: STABLE Additional Instructions: Return if not better in 3 days. Instructions: Threatened Miscarriage Print Language: MALTESE
[2018-01-01 12:58] LABS: BASO # 0.1 K/uL (0.0-0.2); EOS # 0.1 K/uL (0.0-0.7); EOS % 0.9 % (0.0-4.0); HEMOGLOBIN 8.8 g/dL (12.0-16.0); LYMPH # 1.4 K/uL (1.0-4.3); LYMPH % 18.4 % (20.0-40.0); MEAN CELL VOLUME 85.8 fl (81.0-99.0); MEAN CORPUSCULAR HEMOGLOBIN 28.1 pg (27.0-31.0); MEAN CORPUSCULAR HGB CONC 32.7 g/dL (33.0-37.0); MEAN PLATELET VOLUME 9.1 fl (7.2-11.7); MONO # 0.3 K/uL (0.0-0.8); MONO % 3.7 % (0.0-10.0); RBC 3.14 Mil/uL (3.80-5.20); RED CELL DISTRIBUTION WIDTH 14.1 % (11.5-14.5); WHITE BLOOD COUNT 7.9 K/uL (4.8-10.8)
[2018-01-01 13:30] LABS: ALT/SGPT 19 U/L (9-52); AST/SGOT 17 U/L (14-36); BLOOD UREA NITROGEN 14 mg/dl (7-17); CALCIUM 8.8 mg/dL (8.4-10.2); GFR NON-AFRICAN AMERICAN > 60
--- NOTE | 2018-01-01 14:38 | US ---
Date of service: 01/01/2018 PROCEDURE: OB Pelvic Ultrasound HISTORY: preg and pain COMPARISON: None available. FINDINGS: UTERUS: Single live intrauterine gestation. CRL measures 2.94 cm equivalent to 9 weeks and 5 days of gestational age. Yolk sac is visualized. Gestational sac diameter measures 3.36 cm equivalent to 8 weeks and 3 days of gestational age. age (Ultrasound estimated): 9 weeks and 1 day Date of delivery (Ultrasound estimated) : 08/05/2018 Heart rate: 156 bpm. Melanie-gestational hemorrhage: None. Uterus measures 10.6 x 9.7 x 7.3 cm. No mass CERVIX: Long and closed. There is a nabothian cyst in the cervix. There is trace fluid in the endocervical canal. RIGHT OVARY: Measures 2.9 x 2.5 x 1.6 cm. No mass. Normal flow. LEFT OVARY: Measures 4.6 x 2.8 x 1.7 cm. No mass. Normal flow. There is a 2.0 x 1.8 x 1.8 cm complicated/hemorrhagic cyst. FREE FLUID: None. OTHER FINDINGS: None. IMPRESSION: Single live intrauterine gestation with mean gestational age of 9 weeks and 1 day. The estimated date of delivery by ultrasound is 08/05/2018. There is a discrepancy with the clinical dates by almost 3 weeks. Clinical follow-up is advised.
[2018-01-01 15:42] VITALS: BP 140/70; PULSE 85; RESP 19; TEMP 97.7; O2SAT 98
== END 2018-01-01 15:55 | disposition home or self-care (01) ==
LOC: H.ER 11:43
DX: O20.0 Threatened abortion (principal)
CPT/HCPCS: 76817; 80053; 81025; 84702; 85025; 86850; 86900; 96374; 99283; J2765; J7030